=== PATIENT | female | born 1980 | race Caucasian/White ===

== ENCOUNTER 2018-03-29 04:37 | Emergency (ER) | payer BC ==
[2018-03-29] MEDS ORDERED: MORPHINE SULFATE 10 MG/ML INJ IV ONE (04:56)
[2018-03-29 05:09] LABS: ABSOLUTE LYMPHOCYTES (AUTO) 0.9 10^3/uL (0.5-4.7); ABSOLUTE MONOCYTES (AUTO) 1.3 10^3/uL (0.1-1.4); ABSOLUTE NEUT (AUTO) 11.6 10^3/uL (1.7-8.2); BASOPHILS % (AUTO) 0.3 % (0-2); EOSINOPHILS % (AUTO) 0.1 % (0-6); HEMATOCRIT 39.2 % (36.0-47.0); HEMOGLOBIN 14.1 g/dL (12.0-15.5); LYMPHOCYTES % (AUTO) 6.7 % (13-45); MEAN CORPUSCULAR HEMOGLOBIN 33.2 pg (27.0-33.4); MEAN CORPUSCULAR HGB CONC 35.9 g/dL (32.0-36.0); MEAN CORPUSCULAR VOLUME 93 fl (80-97); MONOCYTES % (AUTO) 9.2 % (3-13); PLATELET COUNT 252 10^3/uL (150-450); RED BLOOD COUNT 4.24 10^6/uL (3.72-5.28); RED CELL DISTRIBUTION WIDTH 12.1 % (11.5-14.0); SEGMENTED NEUTROPHILS % (AUTO) 83.7 % (42-78); TOTAL CELLS COUNTED % (AUTO) 100 %; WHITE BLOOD COUNT 13.8 10^3/uL (4.0-10.5)
--- NOTE | 2018-03-29 05:13 | ER Document Report ---
ED Medical Screen (RME) - General Chief Complaint: Post Surgical Pain Stated Complaint: BACK PAIN TRAVEL OUTSIDE OF THE [place] IN LAST 30 DAYS: No - HPI Patient complains to provider of: back pain Onset: Other - 37-year-old 6 days status post spinal stimulator implantation presents with some fevers and chills and excruciating back pain in the thoracic spine which woke her from sleep. - Related Data Allergies/Adverse Reactions: No Known Allergies Allergy (Verified 03/29/18 04:48) Past Medical History Renal/ Medical History: Denies: Hx Peritoneal Dialysis Past Surgical History: Reports: Hx Section - x3, Hx Cholecystectomy, Hx Tonsillectomy, Hx Tubal Ligation - Immunizations Immunizations up to date: Yes Hx Diphtheria, Pertussis, Tetanus Vaccination: No Physical Exam - Vital signs Vitals: Temp 98.5 F 03/29/18 04:40 Course - Re-evaluation Re-evalutation: 03/29/18 05:12 I performed a rapid medical screening examination on this patient. She is postoperative course day 6 with some fevers and chills after a spinal stimulator implantation. Has some concern for possible infection, will obtain labs as well as imaging. This patient will require further investigation and evaluation by secondary provider, will defer disposition determination to that provider. - Vital Signs Vital signs: Temp Pulse Resp BP Pulse Ox 98.5 F 12 130/64 H 100 03/29/18 04:40 03/29/18 04:43 03/29/18 04:43 03/29/18 04:43 - Laboratory Result Diagrams: 03/29/18 04:48 03/29/18 04:48 Doctor's Discharge - Discharge Referrals: JACK CERON FNP [Primary Care Provider] - Follow up as needed
[2018-03-29 05:18] LABS: ALANINE AMINOTRANSFERASE 86 U/L (9-52); ALBUMIN 4.3 g/dL (3.5-5.0); ALKALINE PHOSPHATASE 68 U/L (38-126); ANION GAP 12 (5-19); ASPARTATE AMINO TRANSFERASE 68 U/L (14-36); BILIRUBIN,DIRECT 0.2 mg/dL (0.0-0.4); BILIRUBIN,TOTAL 0.8 mg/dL (0.2-1.3); BLOOD UREA NITROGEN 10 mg/dL (7-20); C-REACTIVE PROTEIN 79.7 mg/L (<10.0); CALCIUM 9.7 mg/dL (8.4-10.2); CARBON DIOXIDE 25 mmol/L (22-30); CHLORIDE 100 mmol/L (98-107); GLUCOSE 133 mg/dL (75-110); POTASSIUM 3.9 mmol/L (3.6-5.0); SODIUM 137.3 mmol/L (137-145); TOTAL PROTEIN 7.4 g/dL (6.3-8.2)
--- NOTE | 2018-03-29 05:56 | RADIOLOGY REPORT (SQ) ---
EXAM DESCRIPTION: CT THORACIC SPINE WITHOUT THEN WITH IV CONTRAST COMPLETED DATE/TME: 03/29/2018 04:55 CLINICAL HISTORY: abscess post spinal stimulator implant COMPARISON: None available TECHNIQUE: Axial CT of the thoracic spine obtained without and with contrast. 80 mL Omnipaque 350 administered intravenously without complication. FINDINGS: Alignment of the thoracic spine is maintained without evidence of subluxation. Dorsal generator leads identified. The generator pack itself is not identified on this study. No well-circumscribed fluid collections definitely identified on the generator leads. Small foci of epidural and subcutaneous air may be due to recent placement. No fracture identified. Vertebral body height preserved. Prevertebral soft tissues are unremarkable. Intervertebral disc height preserved. Visualized mediastinum is unremarkable. No abnormality in the visualized lungs. No abnormalities of visualized ribs. No abnormalities of visualized upper abdominal soft tissues. DLP: 5881.16 mGy-cm IMPRESSION: 1. No acute fracture or subluxation of the thoracic spine. 2. Scattered foci of air in the epidural space and the subcutaneous soft tissues along the generator leads is likely postoperative. No well-circumscribed fluid collection along the visualized course of the generator leads to suggest abscess formation. The generator pack itself is not visualized on this study. This exam was performed according to our departmental dose-optimization program, which includes automated exposure control, adjustment of the mA and/or kV according to patient size and/or use of iterative reconstruction technique.
[2018-03-29 06:41] LABS: ERYTHROCYTE SEDIMENTATION RATE 40 mm/hr (0-20)
[2018-03-29] MEDS ORDERED: NORMAL SALINE 1000 ML 1,000 ML IV ONE (06:44)
[2018-03-29] MEDS ORDERED: HYDROMORPHONE HCL INJ/PF 2 MG/ML AMPULE IV ONE (06:45)
[2018-03-29] MEDS ORDERED: ONDANSETRON HCL INJ/PF 4 MG/2 ML SDV IV ONE (06:56)
--- NOTE | 2018-03-29 06:57 | ER Document Report ---
ED General - General Chief Complaint: Post Surgical Pain Stated Complaint: BACK PAIN Time Seen by Provider: 03/29/18 06:29 Mode of Arrival: Ambulatory Information source: Patient Notes: Patient complained of upper back pain on the site of her recent back surgery which started last night. Patient had a stimulator placed in her upper back for back pain. This procedure was done by Dr. Trimble at [facility] in [place]. Patient denies any fall or injury to the back. She says she has been taking Percocets at home without any relief of her pain. Patient denies fever/chills, chest pain, shortness of breath, abdominal pain, nausea or vomiting. TRAVEL OUTSIDE OF THE [place] IN LAST 30 DAYS: No - HPI Onset: This morning Onset/Duration: Sudden Quality of pain: Sharp Severity: Severe Pain Level: 5 Associated symptoms: None Exacerbated by: Denies Relieved by: Denies Similar symptoms previously: No Recently seen / treated by doctor: Yes - Dr Jatinder Trimble at [facility].03/26/2018 - Related Data Allergies/Adverse Reactions: No Known Allergies Allergy (Verified 03/29/18 04:48) Past Medical History - Social History Smoking Status: Unknown if Ever Smoked Family History: Reviewed & Not Pertinent Patient has suicidal ideation: No Patient has homicidal ideation: No Renal/ Medical History: Denies: Hx Peritoneal Dialysis Past Surgical History: Reports: Hx Section - x3, Hx Cholecystectomy, Hx Tonsillectomy, Hx Tubal Ligation - Immunizations Immunizations up to date: Yes Hx Diphtheria, Pertussis, Tetanus Vaccination: No Review of Systems - Review of Systems Constitutional: denies: Chills, Fever EENT: denies: Eye pain Cardiovascular: No symptoms reported Respiratory: No symptoms reported Gastrointestinal: No symptoms reported Genitourinary: No symptoms reported Female Genitourinary: No symptoms reported Musculoskeletal: Back pain Skin: No symptoms reported Hematologic/Lymphatic: No symptoms reported Neurological/Psychological: No symptoms reported -: Yes All other systems reviewed and negative Physical Exam - Vital signs Vitals: Temp 98.5 F 03/29/18 04:40 - General General appearance: Appears well, Alert In distress: None - HEENT Head: Normocephalic, Atraumatic Eyes: Normal Pupils: PERRL - Respiratory Respiratory status: No respiratory distress Chest status: Nontender Breath sounds: Normal Chest palpation: Normal - Cardiovascular Rhythm: Regular Heart sounds: Normal auscultation Murmur: No - Abdominal Inspection: Normal Distension: No distension Bowel sounds: Normal Tenderness: Nontender Organomegaly: No organomegaly - Back Back: Other - Thoracic vetebrae surgical wound is well healed. No discharge or signs of infection. Mild tenderness to palpation. - Extremities General upper extremity: Normal inspection, Nontender, Normal color, Normal ROM , Normal temperature General lower extremity: Normal inspection, Nontender, Normal color, Normal ROM , Normal temperature, Normal weight bearing. No: Ciera's sign - Neurological Neuro grossly intact: Yes Cognition: Normal Orientation: AAOx4 Meet Coma Scale Eye Opening: Spontaneous Meet Coma Scale Verbal: Oriented Meet Coma Scale Motor: Obeys Commands Meet Coma Scale Total: 15 Speech: Normal Motor strength normal: LUE, RUE, LLE, RLE Sensory: Normal - Psychological Associated symptoms: Normal affect, Normal mood - Skin Skin Temperature: Warm Skin Moisture: Dry Skin Color: Normal Course - Vital Signs Vital signs: Temp Pulse Resp BP Pulse Ox 97.3 F 67 14 122/66 100 03/29/18 09:07 03/29/18 09:07 03/29/18 09:07 03/29/18 09:07 03/29/18 09:07 - Laboratory Result Diagrams: 03/29/18 04:48 03/29/18 04:48 Laboratory results interpreted by me: 03/29/18 03/29/18 03/29/18 04:48 04:48 08:26 WBC 13.8 H Seg Neutrophils % 83.7 H Lymphocytes % 6.7 L Absolute Neutrophils 11.6 H ESR 40 H Creatinine 0.46 L Glucose 133 H AST 68 H ALT 86 H C-Reactive Protein 79.7 H Urine Protein 30 H Urine Ketones TRACE H Urine Blood SMALL H - Diagnostic Test Radiology reviewed: Image reviewed, Reports reviewed - Transfer of Care Notes: 03/29/18 07:36 I called [facility] and spoke with Dr. Jatinder Trimble the Surgeon who operated on the patient last week. I discussed in details the patients medical history, lab results and CT scan findings. He wants patient to be discharged home to follow-up in his outpatient clinic tomorrow morning. I will discharge patient home as recommended by Dr. Jatinder Trimble who performed surgery on the patient. Discharge - Discharge Clinical Impression: Back pain Qualifiers: Back pain location: thoracic back pain Chronicity: acute Back pain laterality: midline Qualified Code(s): M54.6 - Pain in thoracic spine Condition: Stable Disposition: HOME, SELF-CARE Instructions: Chronic Back Pain ([facility]) Additional Instructions: Please call Dr. Brizuela's office tomorrow morning to make appointment to see him immediately. Return to the emergency room if your condition worsens. Referrals: JACK CERON FNP [Primary Care Provider] - Follow up as needed
[2018-03-29] MEDS ORDERED: ONDANSETRON HCL INJ/PF 4 MG/2 ML SDV ONE (06:58)
[2018-03-29] MEDS ORDERED: METOCLOPRAMIDE HCL INJ/PF 10 MG/2 ML SDV IV ONE (08:03)
--- NOTE | 2018-03-29 08:54 | RADIOLOGY REPORT (SQ) ---
EXAM DESCRIPTION: CHEST 2 VIEWS COMPLETED DATE/TIME: 03/29/2018 7:57 am REASON FOR STUDY: Leukocytosis COMPARISON: None. EXAM PARAMETERS: NUMBER OF VIEWS: two views TECHNIQUE: Digital Frontal and Lateral radiographic views of the chest acquired. RADIATION DOSE: NA LIMITATIONS: none FINDINGS: LUNGS AND PLEURA: No opacities, masses or pneumothorax. No pleural effusion. MEDIASTINUM AND HILAR STRUCTURES: No masses or contour abnormalities. HEART AND VASCULAR STRUCTURES: Heart normal size. No evidence for failure. BONES: No acute findings. HARDWARE: Thoracic neurostimulator. OTHER: No other significant finding. IMPRESSION: NO ACUTE RADIOGRAPHIC FINDING IN THE CHEST. TECHNICAL DOCUMENTATION: JOB ID: [id number] [employer]- All Rights Reserved Reading location - IP/workstation name: [email or web address]
[2018-03-29 08:59] LABS: APPEARANCE,URINE SLIGHTLY-CLOUDY; BILIRUBIN,URINE NEGATIVE (NEGATIVE); COLOR,URINE YELLOW; GLUCOSE, URINE NEGATIVE (NEGATIVE); KETONES,URINE TRACE mg/dL (NEGATIVE); LEUKOCYTE ESTERASE,URINE NEGATIVE (NEGATIVE); NITRITE,URINE NEGATIVE (NEGATIVE); PROTEIN,URINE 30 mg/dL (NEGATIVE); UROBILINOGEN,URINE NEGATIVE mg/dL (<2.0)
[2018-03-29 09:00] LABS: URINE SPECIFIC GRAVITY > 1.060
[2018-03-29 09:08] VITALS: BP 122/66
== END 2018-03-29 10:45 | disposition home or self-care (01) ==
LOC: ER 04:37
DX: M54.6 Pain in thoracic spine (principal); G89.18 Other acute postprocedural pain; M54.9 Dorsalgia, unspecified; R50.9 Fever, unspecified; Z79.899 Other long term (current) drug therapy
CPT/HCPCS: 99284; 96361; 96374; 96375; 36415; 85025; 85652; 86140; 80053; 81001; 71046; 72130; J2765; J2270; J1170; J2405; J7030

== ENCOUNTER 2019-10-24 23:40 | Emergency (ER) | payer BC, OTHER ==
[2019-10-24] MEDS ORDERED: ONDANSETRON HCL INJ/PF 4 MG/2 ML SDV IV ONE (23:56)
[2019-10-24] MEDS ORDERED: KETOROLAC TROMETHAMINE INJ/PF 30 MG/1 ML SDV IV ONE (23:57)
--- NOTE | 2019-10-25 00:15 | ER Document Report ---
ED GI/ - General Chief Complaint: Flank Pain Stated Complaint: ABDOMINAL PAIN Time Seen by Provider: 10/24/19 23:51 Primary Care Provider: KELSEY ZACARIAS MD [ACTIVE STAFF] - Follow up in 3-5 days JACK CERON FNP [Primary Care Provider] - Follow up as needed Notes: Patient is a 39-year-old female who presents the emergency department with a chief complaint of left lower quadrant/flank pain. Patient states that her symptoms started 2 to 3 days ago. She has history of cervical cancer and ended up having a hysterectomy 4 years ago. Patient has history of cholecystectomy. Patient also had a nerve stimulator placed 2 years ago. She does not take any medications on a regular basis. TRAVEL OUTSIDE OF THE [place] IN LAST 30 DAYS: No - Related Data Allergies/Adverse Reactions: No Known Allergies Allergy (Verified 03/29/18 04:48) Past Medical History - Social History Smoking Status: Never Smoker Chew tobacco use (# tins/day): No Frequency of alcohol use: None Drug Abuse: None Family History: Reviewed & Not Pertinent Patient has homicidal ideation: No Renal/ Medical History: Denies: Hx Peritoneal Dialysis Past Surgical History: Reports: Hx Section - x3, Hx Cholecystectomy, Hx Tonsillectomy, Hx Tubal Ligation - Immunizations Immunizations up to date: Yes Hx Diphtheria, Pertussis, Tetanus Vaccination: No Review of Systems - Review of Systems Notes: REVIEW OF SYSTEMS: CONSTITUTIONAL : Denies recent illness. Denies recent unintentional weight loss. Denies fever, chills, or sweats. EENT: Denies eye, ear, throat, or mouth pain, discharge, or symptoms. Denies nasal or sinus congestion. CARDIOVASCULAR: Denies chest pain. RESPIRATORY: Denies shortness of breath, cough, congestion, difficulty breathing, or wheezing. GASTROINTESTINAL: See HPI. GENITOURINARY: Denies difficulty urinating, burning, blood in urine, urgency or frequency. MUSCULOSKELETAL: See HPI. Denies joint pain or swelling. SKIN: Denies rash, itchiness, or lesions HEMATOLOGIC : Denies easy bruising or bleeding. LYMPHATIC: Denies swollen, painful, enlarged glands. NEUROLOGICAL: Denies no numbness or tingling denies weakness. Denies headache. Denies altered mental status. Denies alteration in speech. PSYCHIATRIC: Denies stress, anxiety, alteration in sleep patterns, or depression. All other systems reviewed and negative. Physical Exam - Vital signs Vitals: Temp Pulse Resp BP Pulse Ox 98.9 F 92 16 126/75 H 99 10/24/19 23:44 10/24/19 23:44 10/24/19 23:44 10/24/19 23:44 10/24/19 23:44 - Notes Notes: PHYSICAL EXAMINATION: GENERAL: Appears well, healthy, well-nourished, no acute distress. HEAD: Normocephalic, atraumatic. EYES: PERRL, conjunctiva normal, all extraocular movements intact, sclera nonicteric ENT: Moist mucous membranes. NECK: Supple, no noticeable swelling, redness, rash. Normal range of motion. LUNGS: Equal breath sounds bilaterally and clear to auscultation. No wheezes rales or rhonchi. CARDIOVASCULAR: S1-S2, regular rate, regular rhythm. Radial pulses 2+, normal. ABDOMEN: Normoactive bowel sounds. Soft, moderately tender generalized abdomen, no rebound tenderness, and no masses palpated. EXTREMITIES: Normal strength and range of motion, no pitting or edema. No cyano sis. NEUROLOGICAL: Moves all extremities upon command. Strength 5/5 in all extremities. PSYCH: Normal mood, normal affect. SKIN: Warm, dry. No rash, lesions, ulcerations noted. Normal skin turgor. Course - Re-evaluation Re-evalutation: 10/25/19 00:30 Hematology shows a mild leukocytosis of 11,200. Chemistries are unremarkable. Urinalysis shows a moderate amount of blood. Patient will be sent for a CT of the abdomen pelvis rule out kidney stone. 10/25/19 01:46 CT of the abdomen pelvis shows a cystic-appearing structure in the right abdomen. It measures 9.9 x 13.1 x 11.1. Discussed these findings with my attending, Dr. Soni. She will assess the patient. Dr. Soni is recommending a pelvic exam and to speak with Dr. Alarcon, the radiologist for further clarification the the cyst seen on CT. 10/25/19 02:[address] Alarcon, the radiologist to get more input on the cystic- appearing structure. He states that it does not look like an abscess. He is recommending oncology be on board and the patient have the area biopsied and possibly a drain placed by radiology. 10/25/19 02:40 Pelvic exam done with MAGGI Ledbetter at bedside. Patient had a small amount of white discharge noted. No cervical motion tenderness noted. 10/25/19 02:[address] Salazar, the oncologist installation service representative. She will follow the patient. She is requesting a consult on the patient. 10/25/19 03:38 I attempted to call Dr. Zacarias, the surgical on-call. Will await callback. Patient has 4+ bacteria and 4+ epithelial cells noted on her wet mount. We will start her on Flagyl. 10/25/19 05:[address] Zacarias. Patient will be evaluated by him. 10/25/19 05:38 Dr. Zacarias at bedside to evaluate patient. 10/25/19 06:08 Dr. Zacarias spoke with the patient and they discussed the plan of care. The plan is to have the patient continue discussing care with him on an outpatient basis. Dr. Zacarias wants the patient to have an outpatient MRI with IV contrast. Patient will also be sent home on pain medication. I will start her on Flagyl to treat bacterial vaginosis. Patient is in understanding of these instructions. According to Dr. Zacarias, his office will give the patient a call for follow up in the clinic within the next few days. Follow-up precautions were given. Verbal discharge instructions were given to the patient. They verbalized understanding. They are stable for discharge. - Vital Signs Vital signs: Temp Pulse Resp BP Pulse Ox 97.9 F 100 18 104/62 99 10/25/19 06:30 10/25/19 06:30 10/25/19 06:30 10/25/19 06:30 10/25/19 06:30 - Laboratory Result Diagrams: 10/25/19 00:05 10/25/19 00:05 Laboratory results interpreted by me: 10/25/19 10/25/19 00:05 00:05 WBC 11.2 H MCH 34.1 H MCHC 36.4 H Urine Blood MODERATE H Discharge - Discharge Clinical Impression: Abdominal pain Qualifiers: Abdominal location: unspecified location Qualified Code(s): R10.9 - Unspecified abdominal pain Condition: Stable Disposition: HOME, SELF-CARE Additional Instructions: You are seen today in the emergency department for abdominal pain. Your evaluated here in the emergency department and were also evaluated by Dr. Zacarias. Please have the MRI done as soon as possible. The plan is to have you evaluated on an outpatient basis, as you discussed with Dr. Zacarias. His office will call you. Take pain medication as directed. You can also take your nausea medication as directed. Prescriptions: Metronidazole [Flagyl 500 mg Tablet] 500 mg PO Q6H #28 tablet Oxycodone HCl/Acetaminophen [Percocet 5-325 mg Tablet] 1 - 2 tab PO Q4H PRN #25 tablet PRN Reason: Ondansetron [Zofran Odt 4 mg Tablet] 1 - 2 tab PO Q4H PRN #30 tab.rapdis PRN Reason: For Nausea/Vomiting Forms: Follow-Up Radiology Testing Referrals: JACK CERON FNP [Primary Care Provider] - Follow up as needed KELSEY ZACARIAS MD [ACTIVE STAFF] - Follow up in 3-5 days
[2019-10-25 00:20] LABS: ABSOLUTE BASOPHILS # (AUTO) 0.1 10^3/uL (0.0-0.2); ABSOLUTE EOSINOPHILS # (AUTO) 0.2 10^3/uL (0.0-0.6); ABSOLUTE MONOCYTES (AUTO) 0.9 10^3/uL (0.1-1.4); BASOPHILS % (AUTO) 0.9 % (0-2); EOSINOPHILS % (AUTO) 1.5 % (0-6); HEMATOCRIT 41.5 % (36.0-47.0); HEMOGLOBIN 15.1 g/dL (12.0-15.5); LYMPHOCYTES % (AUTO) 27.2 % (13-45); MEAN CORPUSCULAR HEMOGLOBIN 34.1 pg (27.0-33.4); MEAN CORPUSCULAR HGB CONC 36.4 g/dL (32.0-36.0); MEAN CORPUSCULAR VOLUME 94 fl (80-97); MONOCYTES % (AUTO) 7.8 % (3-13); PLATELET COUNT 269 10^3/uL (150-450); RED BLOOD COUNT 4.43 10^6/uL (3.72-5.28); RED CELL DISTRIBUTION WIDTH 12.1 % (11.5-14.0); SEGMENTED NEUTROPHILS % (AUTO) 62.6 % (42-78); TOTAL CELLS COUNTED % (AUTO) 100 %; WHITE BLOOD COUNT 11.2 10^3/uL (4.0-10.5)
[2019-10-25 00:21] LABS: APPEARANCE,URINE SLIGHTLY-CLOUDY; BILIRUBIN,URINE NEGATIVE (NEGATIVE); COLOR,URINE YELLOW; GLUCOSE, URINE NEGATIVE (NEGATIVE); KETONES,URINE NEGATIVE (NEGATIVE); LEUKOCYTE ESTERASE,URINE NEGATIVE (NEGATIVE); NITRITE,URINE NEGATIVE (NEGATIVE); PROTEIN,URINE NEGATIVE (NEGATIVE); URINE SPECIFIC GRAVITY 1.024; UROBILINOGEN,URINE NEGATIVE mg/dL (<2.0)
[2019-10-25] MEDS ORDERED: NORMAL SALINE 1000 ML 1,000 ML IV ONE (00:27)
[2019-10-25 00:49] LABS: ALBUMIN 4.7 g/dL (3.5-5.0); ALKALINE PHOSPHATASE 68 U/L (38-126); ANION GAP 8 (5-19); ASPARTATE AMINO TRANSFERASE 28 U/L (14-36); BILIRUBIN,TOTAL 0.5 mg/dL (0.2-1.3); BLOOD UREA NITROGEN 15 mg/dL (7-20); CARBON DIOXIDE 27 mmol/L (22-30); CHLORIDE 104 mmol/L (98-107); GLUCOSE 104 mg/dL (75-110); POTASSIUM 4.3 mmol/L (3.6-5.0); TOTAL PROTEIN 7.8 g/dL (6.3-8.2)
[2019-10-25] MEDS ORDERED: MORPHINE SULFATE 10 MG/ML INJ IV ONE ×3 (01:16→05:23)
--- NOTE | 2019-10-25 01:31 | RADIOLOGY REPORT (SQ) ---
CLINICAL INDICATION: left flank pain; stone?. . TECHNIQUE: Noncontrast spiral axial CT imaging was obtained of the abdomen and pelvis with multiplanar reconstructions. This exam was performed according to our departmental dose-optimization program, which includes automated exposure control, adjustment of the mA and/or kV according to patient size and/or use of iterative reconstruction techniques. COMPARISON: May 05, 2013. CORRELATION: None. FINDINGS: Abdomen: The lung bases are grossly clear. The heart is of normal size. No evidence of pleural or pericardial fluid. The liver is of normal size contour and attenuation. The gallbladder is surgically absent. The pancreas is of grossly normal contour on this noncontrast examination. The spleen is unremarkable. The adrenals are unremarkable. The kidneys appear grossly normal without evidence of urolithiasis or hydronephrosis. There is no evidence of free air. No free fluid. No bulky adenopathy. Abdominal aorta is nonaneurysmal. A large cystic appearing structure is identified right side of the abdomen, not present previously. This measures 9.9 x 13.1 x 11.1 cm, series 3 image 49 and series 601 image 27. This is adverse change from prior. This abnormality is caudad to the right kidney. Although displaces surrounding solid organs and bowel, it is not appear to be of solid organ origin. It may be arising from the right psoas as there is loss of the tissue plane with this structure. Etiology is unclear. Pelvis: The bowel is nonobstructed. The bowel is unopacified with oral contrast. Pelvic contents are unremarkable. The appendix is normal. Visualized bones demonstrate chronic bilateral pars interarticularis defects at L5. No alignment abnormality. Thoracic neurostimulator is noted IMPRESSION: Interval development of a large cystic appearing structure right side the abdomen unknown etiology. This may be arising from the right psoas.. Tissue diagnosis may be appropriate.
[2019-10-25] MEDS ORDERED: ONDANSETRON HCL INJ/PF 4 MG/2 ML SDV IV ONE (02:19)
[2019-10-25 02:49] LABS: BACTERIA (WET MOUNT) 4+ BACTERIA SEEN; EPITHELIALS (WET MOUNT) 4+ EPITHELIALS SEEN; T.VAGINALIS (WET MOUNT) NO TRICHOMONAS SEEN; WBCS (WET MOUNT) 1+ WBCS SEEN; YEAST (WET MOUNT) NO YEAST SEEN
[2019-10-25] MEDS ORDERED: METRONIDAZOLE 500 MG/NS RTU 500 MG/100 ML RTUPB IV ONE (03:20)
[2019-10-25 04:15] LABS: CHLAM PCR NOT DETECTED (NOT DETECT)
[2019-10-25] MEDS ORDERED: HYDROCODONE/ACETAMINOPHEN 5-325 MG (6 TAB/ER DISP) PO PRN (06:22)
[2019-10-25] MEDS ORDERED: ONDANSETRON ODT 4 MG TAB (6 TAB/ER DISP) PO PRN (06:28)
[2019-10-25 06:46] VITALS: BP 104/62
== END 2019-10-25 06:46 | disposition home or self-care (01) ==
LOC: ER 23:40
DX: R10.32 Left lower quadrant pain (principal); Z85.41 Personal history of malignant neoplasm of cervix uteri; Z90.710 Acquired absence of both cervix and uterus; Z90.49 Acquired absence of other specified parts of digestive tract
CPT/HCPCS: 96376; 99284; 96361; 96375; 96365; 36415; 87040; 87210; 83690; 85025; 80053; 81001; 86701; 87491; 87591; 74176; J1885; J3490; J2270; J2405; J7030

== ENCOUNTER 2019-11-04 00:10 | Emergency (ER) | payer OTHER ==
[2019-11-04 00:49] LABS: APPEARANCE,URINE SLIGHTLY-CLOUDY; BILIRUBIN,URINE NEGATIVE (NEGATIVE); COLOR,URINE YELLOW; GLUCOSE, URINE NEGATIVE (NEGATIVE); KETONES,URINE NEGATIVE (NEGATIVE); LEUKOCYTE ESTERASE,URINE NEGATIVE (NEGATIVE); NITRITE,URINE POSITIVE (NEGATIVE); PROTEIN,URINE NEGATIVE (NEGATIVE); URINE SPECIFIC GRAVITY 1.025; UROBILINOGEN,URINE NEGATIVE mg/dL (<2.0)
[2019-11-04 00:55] LABS: ABSOLUTE BASOPHILS # (AUTO) 0.1 10^3/uL (0.0-0.2); ABSOLUTE EOSINOPHILS # (AUTO) 0.1 10^3/uL (0.0-0.6); ABSOLUTE LYMPHOCYTES (AUTO) 2.5 10^3/uL (0.5-4.7); ABSOLUTE MONOCYTES (AUTO) 0.8 10^3/uL (0.1-1.4); ABSOLUTE NEUT (AUTO) 5.7 10^3/uL (1.7-8.2); BASOPHILS % (AUTO) 0.8 % (0-2); EOSINOPHILS % (AUTO) 1.2 % (0-6); HEMATOCRIT 40.2 % (36.0-47.0); HEMOGLOBIN 14.5 g/dL (12.0-15.5); LYMPHOCYTES % (AUTO) 27.4 % (13-45); MEAN CORPUSCULAR HEMOGLOBIN 33.9 pg (27.0-33.4); MEAN CORPUSCULAR HGB CONC 36.2 g/dL (32.0-36.0); MEAN CORPUSCULAR VOLUME 94 fl (80-97); MONOCYTES % (AUTO) 8.3 % (3-13); PLATELET COUNT 275 10^3/uL (150-450); RED BLOOD COUNT 4.28 10^6/uL (3.72-5.28); RED CELL DISTRIBUTION WIDTH 12.2 % (11.5-14.0); SEGMENTED NEUTROPHILS % (AUTO) 62.3 % (42-78); TOTAL CELLS COUNTED % (AUTO) 100 %; WHITE BLOOD COUNT 9.2 10^3/uL (4.0-10.5)
--- NOTE | 2019-11-04 01:02 | ER Document Report ---
ED General - General Chief Complaint: Abdominal Pain Stated Complaint: STOMACH PAIN Time Seen by Provider: 11/04/19 00:36 Primary Care Provider: JACK CERON FNP [Primary Care Provider] - Follow up as needed Notes: 39-year-old female presents today with continued abdominal pain. Was recently seen in the ER on October 24. On last examination they noted a mass on the right quadrant. The plan was for her to follow-up with Dr. Zamora with a plan for removal of the mass. Does not have an appointment until next week. She has a history of cervical cancer history of cholecystectomy pain is described as diffuse. She reports a decreased appetite no nausea, no vomiting, no diarrhea. States that she took a Percocet and Cymbalta this morning this morning and that did not help alleviate her pain. She was instructed to come back to the ER if her pain became worse. She denies any fevers chills chest pain shortness of breath TRAVEL OUTSIDE OF THE [place] IN LAST 30 DAYS: No - Related Data Allergies/Adverse Reactions: No Known Allergies Allergy (Verified 03/29/18 04:48) Home Medications: cymbalta. percocet Past Medical History - Social History Smoking Status: Former Smoker Family History: Reviewed & Not Pertinent Patient has homicidal ideation: No Renal/ Medical History: Denies: Hx Peritoneal Dialysis Other: back pain Past Surgical History: Reports: Hx Section - x3, Hx Cholecystectomy, Hx Tonsillectomy, Hx Tubal Ligation - Immunizations Immunizations up to date: Yes Hx Diphtheria, Pertussis, Tetanus Vaccination: No Review of Systems - Review of Systems Constitutional: No symptoms reported EENT: No symptoms reported Cardiovascular: No symptoms reported Respiratory: No symptoms reported Gastrointestinal: Abdominal pain Genitourinary: No symptoms reported Female Genitourinary: No symptoms reported Musculoskeletal: Back pain Neurological/Psychological: denies: Numbness, Tingling Physical Exam - Vital signs Vitals: Temp Pulse Resp BP Pulse Ox 99.4 F 138 H 16 140/85 H 99 11/04/19 00:14 11/04/19 00:14 11/04/19 00:14 11/04/19 00:14 11/04/19 00:14 - Notes Notes: Adult General: GENERAL: Alert, interacts well. No acute distress NECK: Full range of motion. Supple. Trachea midline. No lymphadenopathy. ABDOMEN: Soft, tender in all 4 quadrants. Nondistended. Bowel sounds present in all 4 quadrants. GENITOURINARY: Deferred EXTREMITIES: Moves all 4 extremities spontaneously. NEUROLOGICAL: Alert and oriented x3. Normal speech. PSYCH: Normal affect, normal mood. SKIN: Warm, dry, normal turgor. No rashes or lesions noted. Course - Re-evaluation Re-evalutation: 11/04/19 01:46 Patient reports an improvement in her pain level. Urinalysis shows moderate blo od and nitrates but patient reports no suprapubic pain or dysuria. There is normal white count and her hemoglobin is normal. Will repeat dosing of pain medication and vitals and reassess. Discussed case with Dr. Smallwood. Believes that abnormal urine is due to compression of mass onto the kidney. 11/04/19 01:49 11/04/19 05:[address] Cohen to discuss case. Patient's repeat vital signs are now normal. But she continues to be in diffuse abdominal pain. Her abdominal exam is still not impressive. Recommends repeat CT scan. If no interval changes to treat her pain and send her home. Patient states that she has her next appointment next with him to schedule surgery. 11/04/19 06:57 CT scan shows no interval changes to her abdominal mass and no additional pertinent findings. Dr. Cohen called as I was reviewing the findings of the CT scan. He recommends starting the patient on Colace and pain control at this time. He says he will come down to examine the patient. 11/04/19 07:[address] Cohen came to evaluate her. And stated that someone from the office will follow up with her today to schedule surgery/an appointment. Patient was previously prescribed Percocet at last ER visit. States it did provide moderate pain relief. I will continue her on Percocet for pain relief as she is out of the pain meds. Will discharge patient with return precautions to include worsening abdominal pain and recommendation to schedule and keep surgical appointment. 11/04/19 07:52 11/04/19 08:00 - Vital Signs Vital signs: Temp Pulse Resp BP Pulse Ox 98.5 F 88 17 118/74 99 11/04/19 04:45 11/04/19 04:45 11/04/19 04:45 11/04/19 04:45 11/04/19 04:45 - Laboratory Result Diagrams: 11/04/19 00:46 11/04/19 00:46 Laboratory results interpreted by me: 11/04/19 11/04/19 11/04/19 00:30 00:46 00:46 MCH 33.9 H MCHC 36.2 H ALT 85 H Urine Blood MODERATE H Urine Nitrite POSITIVE H Discharge - Discharge Clinical Impression: Abdominal mass Qualifiers: Abdominal location: right lower quadrant Qualified Code(s): R19.03 - Right lower quadrant abdominal swelling, mass and lump Condition: Stable Disposition: HOME, SELF-CARE Instructions: Abdominal Pain ([facility]) Additional Instructions: Please call and schedule surgical appointment. Return precautions to the ER include worsening abdominal pain that is not controlled with [id number] pain meds or development of fevers chills dizziness lightheadedness or other symptoms. Prescriptions: Oxycodone HCl/Acetaminophen [Percocet 5-325 mg Tablet] 1 - 2 tab PO TID PRN #15 tablet PRN Reason: Referrals: JACK CERON FNP [Primary Care Provider] - Follow up as needed
[2019-11-04] MEDS ORDERED: MORPHINE SULFATE 10 MG/ML INJ IV ONE ×3 (01:07→02:13)
[2019-11-04] MEDS ORDERED: NORMAL SALINE 1000 ML 1,000 ML IV ONE (01:09)
[2019-11-04 01:17] LABS: ALBUMIN 4.2 g/dL (3.5-5.0); ALKALINE PHOSPHATASE 61 U/L (38-126); ANION GAP 7 (5-19); ASPARTATE AMINO TRANSFERASE 31 U/L (14-36); BILIRUBIN,TOTAL 0.4 mg/dL (0.2-1.3); BLOOD UREA NITROGEN 17 mg/dL (7-20); CALCIUM 9.5 mg/dL (8.4-10.2); CARBON DIOXIDE 26 mmol/L (22-30); CHLORIDE 106 mmol/L (98-107); GLUCOSE 106 mg/dL (75-110); POTASSIUM 3.6 mmol/L (3.6-5.0); TOTAL PROTEIN 7.1 g/dL (6.3-8.2)
--- NOTE | 2019-11-04 06:47 | RADIOLOGY REPORT (SQ) ---
EXAM DESCRIPTION: CT ABDOMEN PELVIS WITH IV CONTRAST COMPLETED DATE/TME: 11/04/2019 04:58 CLINICAL HISTORY: 39 years Female, worsening abdominal pain. HX OF R ABD MASS. HCG NEG Comparison: 10/24/19 Technique: IV contrast. Coronal and sagittal reformat. This exam was performed according to our departmental dose-optimization program, which includes automated exposure control, adjustment of the mA and/or kV according to patient size and/or use of iterative reconstruction technique. [facility]: Dose Right [facility]: CareDose [facility]: Dose Right [facility]: Teradose 4D [facility]: BagThat LIMITATIONS: None Findings: 13.8- cm complex cystic mass of the right paracentral abdomen without significant interval change. New 3.5 cm focal dilation at the proximal second portion of the duodenum, likely transient. Cholecystectomy. Atelectasis/scar. Likely benign renal cyst(s), not definitively characterized. Stimulator device of the subcutaneous right buttock talk with leads to the lower thoracic spine, partially imaged. No ascites.No pneumoperitoneum. No evidence of appendicitis. Likely normal appendix partially discerned. No hydronephrosis or hydroureter. No renal/ureteral stone. No evidence of abdominal aortic aneurysm. Inferior thorax, liver, pancreas, spleen, adrenals, renal system, gastrointestinal tract, pelvic organs, lymphatics, vasculature, and musculoskeleton appear otherwise unremarkable. IMPRESSION: 13.8- cm complex cystic mass of the right paracentral abdomen without suspicious interval change. Differential etiologies include infectious, inflammatory, and neoplastic processes.
[2019-11-04] MEDS ORDERED: DOCUSATE SODIUM 100 MG CAPSULE PO ONE (06:55)
[2019-11-04] MEDS ORDERED: HYDROCODONE/ACETAMINOPHEN 5-325 MG TABLET PO ONE (06:57)
[2019-11-04 08:07] VITALS: BP 115/75
== END 2019-11-04 08:08 | disposition home or self-care (01) ==
LOC: ER 00:10
DX: R19.03 Right lower quadrant abdominal swelling, mass and lump (principal); R10.84 Generalized abdominal pain; R31.9 Hematuria, unspecified; R63.0 Anorexia; M54.9 Dorsalgia, unspecified; R10.811 Right upper quadrant abdominal tenderness; R10.812 Left upper quadrant abdominal tenderness; R10.813 Right lower quadrant abdominal tenderness; R10.814 Left lower quadrant abdominal tenderness; Z85.41 Personal history of malignant neoplasm of cervix uteri; Z90.49 Acquired absence of other specified parts of digestive tract; Z79.899 Other long term (current) drug therapy; Z79.891 Long term (current) use of opiate analgesic
CPT/HCPCS: 96376; 99284; 96361; 96374; 36415; 87086; 83690; 85025; 81025; 87088; 80053; 81001; 87186; 74177; J2270; J7030

== ENCOUNTER 2019-11-15 08:52 | Inpatient (IN) | payer OTHER ==
[~2019-11-15 08:52] MED LIST: CEFAZOLIN SODIUM 2 GM in DEXTROSE 5%-WATER 100 ML IV PRN; LACTATED RINGERS 1000 ML IV PRN; METRONIDAZOLE 500 MG/NS RTU 500 MG/100 ML RTUPB IV ONE; METRONIDAZOLE 500 MG/NS RTU 500 MG/100 ML RTUPB IV PRN
[2019-11-15] MEDS ORDERED: FENTANYL CITRATE INJ/PF 100 MCG/2 ML AMPUL ONE (11:38)
[2019-11-15] MEDS ORDERED: PROPOFOL INJ 200 MG/20 ML VIAL IV ONE (11:38)
[2019-11-15] MEDS ORDERED: MIDAZOLAM 2 MG/2 ML INJ ONE (11:38)
[2019-11-15] MEDS ORDERED: PROMETHAZINE HCL INJ 25 MG/1 ML VIAL ONE (11:38)
[2019-11-15] MEDS ORDERED: HYDROMORPHONE HCL INJ/PF 2 MG/ML AMPULE ONE ×2 (11:38→15:41)
[2019-11-15] MEDS ORDERED: PROMETHAZINE HCL INJ 25 MG/1 ML VIAL IV PRN (11:40)
[2019-11-15] MEDS ORDERED: MORPHINE SULFATE 10 MG/ML INJ IV PRN ×2 (11:40→15:48)
[2019-11-15] MEDS ORDERED: MEPERIDINE HCL/PF INJ 25 MG/1 ML DISP.SYRIN IV PRN (11:40)
[2019-11-15] MEDS ORDERED: ONDANSETRON HCL INJ/PF 4 MG/2 ML SDV IV PRN ×2 (11:40→15:48)
[2019-11-15] MEDS ORDERED: FENTANYL CITRATE INJ/PF 100 MCG/2 ML AMPUL IV PRN ×3 (11:40)
[2019-11-15] MEDS ORDERED: DIPHENHYDRAMINE HCL 50 MG/ML VIAL IV PRN (11:40)
[2019-11-15] MEDS ORDERED: BUPIVACAINE HCL 0.5 % INJ/PF 30 ML SDV ONE (11:47)
[2019-11-15] MEDS ORDERED: BUPIVACAINE HCL 0.25% /EPINEPHRINE INJ/PF 30 ML SDV ONE (11:49)
[2019-11-15] MEDS ORDERED: DEXAMETHASONE SOD PHOSPHATE INJ 4 MG/1 ML VIAL ONE (12:00)
[2019-11-15] MEDS ORDERED: NEOSTIGMINE METHYLSULFATE 10 MG/10 ML VIAL ONE (12:00)
[2019-11-15] MEDS ORDERED: ROCURONIUM BROMIDE INJ 50 MG/5 ML VIAL IV ONE (12:00)
[2019-11-15] MEDS ORDERED: KETOROLAC TROMETHAMINE 60 MG/2 ML SDV ONE (12:00)
[2019-11-15] MEDS ORDERED: GLYCOPYRROLATE 1 MG/5 ML VIAL ONE (12:00)
[2019-11-15] MEDS ORDERED: ONDANSETRON HCL INJ/PF 4 MG/2 ML SDV ONE (12:00)
[2019-11-15] MEDS ORDERED: FENTANYL CITRATE INJ/PF 250 MCG/5 ML AMPULE ONE (14:12)
[2019-11-15] MEDS: FENTANYL CITRATE INJ/PF 100 MCG/2 ML AMPUL ONE ×2 (15:13→15:30)
[2019-11-15] MEDS: HYDROMORPHONE HCL INJ/PF 2 MG/ML AMPULE IV PRN ×2 (15:40→15:50)
[2019-11-15] MEDS ORDERED: POTASSI CL 20 MEQ/D5-1/2NS 1L 1,000 ML IV PRN (15:48)
--- NOTE | 2019-11-15 16:02 | Operative Report ---
Nonrecallable Operative Report DATE OF SURGERY: 11/15/19 PREOPERATIVE DIAGNOSIS: Abdominal mass POSTOPERATIVE DIAGNOSIS: Abdominal mass OPERATION: Exploratory laparotomy with resection of abdominal mass and appendectomy incidental SURGEON: KELSEY ZACARIAS 1ST CLEANING TECHNICIAN: KVNG FRANCO ANESTHESIA: GA TISSUE REMOVED OR ALTERED: Large 15 cm round cystic mass in the left abdominal cavity, appendix COMPLICATIONS: None ESTIMATED BLOOD LOSS: 100 cc INTRAOPERATIVE FINDINGS: See note PROCEDURE: Patient was brought to the operating awake alert stable condition placed in the upper table supine position just under general esthesia intubated. The abdomen was prepped and draped in usual sterile fashion for the procedure. After appropriate timeout site verification the procedure commenced. A midline incision was utilized from just above the umbilicus to just above the pubic symphysis. Dissection was carried down through subcutaneous tissue with Bovie cautery midline fascia was entered with Bovie cautery. We then placed the overlying the psoas muscle on the right with the Omni retractor for visualization. Patient had a large cystic mass in the right abdominal cavity transverse colon draped over it there were loose adhesions around it between the transverse mesocolon and the mass these were taken down with sharp dissection. The mass extended only to the pelvic brim it did not extend into the pelvis nor did extend up to the bell hepatis. It was attached to the peritoneum laterally and the right colonic mesentery Jordan. However the right colonic mesentery easily peeled away from the mass. Once we did that we then lifted the mass laterally and examined the midline of the pelvis and identified very easily and quickly the right ureter which we traced from the pelvic brim to the renal pelvis. We were able to using blunt dissection with a peanut dilator easily dissect the right ureter away from the peritoneum overlying the mass. We did that that we retracted the mass from lateral to medial and incised the peritoneum on the right abdominal wall with Bovie cautery to facilitate mobilization of the mass medially. Once this was accomplished and we were able to peel the mass away from the psoas muscle it was not fixed to it with sharp dissection and using the LigaSure device. Once this was accomplished the mass then easily was removed. The ureter was then reexamined examined and it appeared to be intact without evidence of injury to the colon was also examined and showed no evidence of injury to the mesentery. At this point the appendix looked somewhat elongated and mildly inflamed as it was sitting on top of the mass and therefore I asked removed it placed I took down the mesoappendix with the LigaSure device and came across the base of the appendix with a pursestring suture of 2-0 chromic amputated appendix tied off the stump and inserted the stump into the cecum tied down the pursestring suture. We then copiously irrigated the abdominal cavity suctioned dry hemostasis noted to be intact we then closed the midline fascia with a running double looped 0 PDS suture closed the skin with standard skin clips. Estimated blood loss for the procedure was 100 cc sponge needle counts were correct x2 the patient was awakened in the operating room extubated transferred recovery in stable condition no complications
[2019-11-15] MEDS: KETOROLAC TROMETHAMINE INJ/PF 30 MG/1 ML SDV IV SCH (19:10)
[2019-11-15] MEDS: MORPHINE SULFATE 10 MG/ML INJ IV PRN ×2 (20:23→23:36)
[2019-11-15] MEDS: NORMAL SALINE 1000 ML 1,000 ML IV PRN (21:31)
[2019-11-15] MEDS: FAMOTIDINE INJ/PF 20 MG/2 ML SDV IV SCH (21:31)
[2019-11-16] MEDS: KETOROLAC TROMETHAMINE INJ/PF 30 MG/1 ML SDV IV SCH ×4 (00:45→17:49)
[2019-11-16] MEDS: MORPHINE SULFATE 10 MG/ML INJ IV PRN ×5 (04:03→21:41)
[2019-11-16 07:03] LABS: ABSOLUTE LYMPHOCYTES (AUTO) 1.4 10^3/uL (0.5-4.7); ABSOLUTE MONOCYTES (AUTO) 1.3 10^3/uL (0.1-1.4); ABSOLUTE NEUT (AUTO) 11.6 10^3/uL (1.7-8.2); BASOPHILS % (AUTO) 0.2 % (0-2); EOSINOPHILS % (AUTO) 0.1 % (0-6); HEMOGLOBIN 12.7 g/dL (12.0-15.5); LYMPHOCYTES % (AUTO) 9.5 % (13-45); MEAN CORPUSCULAR HEMOGLOBIN 33.8 pg (27.0-33.4); MEAN CORPUSCULAR HGB CONC 36.4 g/dL (32.0-36.0); MEAN CORPUSCULAR VOLUME 93 fl (80-97); MONOCYTES % (AUTO) 9.1 % (3-13); PLATELET COUNT 250 10^3/uL (150-450); RED BLOOD COUNT 3.77 10^6/uL (3.72-5.28); RED CELL DISTRIBUTION WIDTH 11.8 % (11.5-14.0); SEGMENTED NEUTROPHILS % (AUTO) 81.1 % (42-78); TOTAL CELLS COUNTED % (AUTO) 100 %; WHITE BLOOD COUNT 14.3 10^3/uL (4.0-10.5)
[2019-11-16 07:20] LABS: BLOOD UREA NITROGEN 12 mg/dL (7-20); CALCIUM 8.3 mg/dL (8.4-10.2); GLUCOSE 116 mg/dL (75-110); POTASSIUM 3.8 mmol/L (3.6-5.0)
[2019-11-16 07:25] LABS: CARBON DIOXIDE 24 mmol/L (22-30); CHLORIDE 107 mmol/L (98-107)
[2019-11-16 07:28] LABS: ANION GAP 3 (5-19)
[2019-11-16] MEDS: NORMAL SALINE 1000 ML 1,000 ML IV PRN ×2 (07:56→17:48)
[2019-11-16] MEDS: FAMOTIDINE INJ/PF 20 MG/2 ML SDV IV SCH ×2 (11:06→21:43)
--- NOTE | 2019-11-16 11:54 | PDOC PROGRESS REPORT ---
Subjective Progress Note for:: 11/16/19 Subjective:: feels ok Reason For Visit: ABDOMINAL MASS Physical Exam Vital Signs: Temp Pulse Resp BP Pulse Ox 98.1 F 72 16 114/59 L 100 11/16/19 08:00 11/16/19 08:00 11/16/19 08:00 11/16/19 08:00 11/16/19 08:00 Intake & Output 11/15/19 11/16/19 11/17/19 06:59 06:59 06:59 Intake Total 5070 1000 Output Total 2595 500 Balance 2475 500 Weight 77.56 kg General appearance: PRESENT: no acute distress Head exam: PRESENT: normocephalic Eye exam: PRESENT: EOMI Ear exam: PRESENT: normal external ear exam Mouth exam: PRESENT: moist Neck exam: PRESENT: full ROM Respiratory exam: PRESENT: clear to auscultation daniel Cardiovascular exam: PRESENT: RRR Pulses: PRESENT: normal radial pulses, normal femoral pulses Breast: PRESENT: Normal GI/Abdominal exam: PRESENT: soft Extremities exam: PRESENT: full ROM Musculoskeletal exam: PRESENT: full ROM Neurological exam: PRESENT: alert, awake, oriented to person, oriented to place Psychiatric exam: PRESENT: appropriate affect Skin exam: PRESENT: dry Results Laboratory Results: 11/16/19 06:15 11/16/19 06:15 11/15/19 11/16/19 11/16/19 12:54 06:15 06:15 WBC 14.3 H RBC 3.77 Hgb 12.7 Hct 35.0 L MCV 93 MCH 33.8 H MCHC 36.4 H RDW 11.8 Plt Count 250 Seg Neutrophils % 81.1 H Sodium 134.0 L Potassium 3.8 Chloride 107 Carbon Dioxide 24 Anion Gap 3 L BUN 12 Creatinine 0.52 Est GFR ( Amer) > 60 Glucose 116 H Calcium 8.3 L Blood Type O POSITIVE Antibody Screen NEGATIVE Assessment & Plan - Diagnosis (1) Abdominal mass Qualifiers: Abdominal location: generalized Qualified Code(s): R19.07 - Generalized intra-abdominal and pelvic swelling, mass and lump Is this a current diagnosis for this admission?: Yes - Plan Summary Plan Summary: doing well this am pain under control will advance to full liquids out of bed.
[2019-11-17] MEDS: KETOROLAC TROMETHAMINE INJ/PF 30 MG/1 ML SDV IV SCH ×2 (00:12→05:52)
[2019-11-17] MEDS: MORPHINE SULFATE 10 MG/ML INJ IV PRN ×2 (01:25→08:56)
[2019-11-17] MEDS: NORMAL SALINE 1000 ML 1,000 ML IV PRN (05:57)
--- NOTE | 2019-11-17 08:31 | PDOC DISCHARGE SUMMARY ---
General - Admit/Disc Date/PCP Admission Date/Primary Care Provider: 11/15/19 16:49 BARB MERIDA Discharge Date: 11/17/19 - Discharge Diagnosis Final Diagnosis: abdominal mass - Assessment Summary: 39-year-old female admitted to the hospital for elective exploratory laparotomy and resection of abdominal mass. She underwent the procedure and tolerated well. So far pathology of the abdominal mass is pending but it was completely resected. On postop day 1 she was feeling well she was started on a clear liquid diet which was slowly advanced to full liquid diet by the time of discharge. When seen the patient this morning she requested to be discharged home she is ambulating the Bryan has been removed she is tolerating full liquid diet. She will be discharged home today on p.o. pain medicine with a follow-up with me in 7 to 10 days for staple removal and discussion of the pathology report. - Additional Information Resuscitation Status: Full Code Discharge Diet: As Tolerated Discharge Activity: Activity As Tolerated, No Lifting Over 10 Pounds Referrals: JACK CERON FNP [Primary Care Provider] - Prescriptions: Oxycodone HCl/Acetaminophen [Percocet 10-325 Mg Tablet] 1 each PO Q6HP PRN #20 tablet PRN Reason: Home Medications: Duloxetine HCl [Cymbalta 30 mg Capsule.dr] 30 mg PO DAILY 11/11/19 Oxycodone HCl/Acetaminophen [Percocet 10-325 Mg Tablet] 1 each PO Q6HP PRN #20 tablet 11/17/19 History of Present Illiness History of Present Illness: FLORENTIN DAMON is a 39 year old female Physical Exam Vital Signs: Temp Pulse Resp BP Pulse Ox 98.0 F 72 18 106/57 L 99 11/17/19 07:41 11/17/19 07:41 11/17/19 07:41 11/17/19 07:41 11/17/19 07:41 Intake & Output 11/16/19 11/17/19 11/18/19 06:59 06:59 06:59 Intake Total 5070 3587 Output Total 6495 500 Balance 2475 3087 Weight 77.56 kg 66.6 kg Results Laboratory Results: WBC 14.3 10^3/uL (4.0-10.5) H 11/16/19 06:15 RBC 3.77 10^6/uL (3.72-5.28) 11/16/19 06:15 Hgb 12.7 g/dL (12.0-15.5) 11/16/19 06:15 Hct 35.0 % (36.0-47.0) L 11/16/19 06:15 MCV 93 fl (80-97) 11/16/19 06:15 MCH 33.8 pg (27.0-33.4) H 11/16/19 06:15 MCHC 36.4 g/dL (32.0-36.0) H 11/16/19 06:15 RDW 11.8 % (11.5-14.0) 11/16/19 06:15 Plt Count 250 10^3/uL (150-450) 11/16/19 06:15 Lymph % (Auto) 9.5 % (13-45) L 11/16/19 06:15 [place] % (Auto) 9.1 % (3-13) 11/16/19 06:15 Eos % (Auto) 0.1 % (0-6) 11/16/19 06:15 Baso % (Auto) 0.2 % (0-2) 11/16/19 06:15 Absolute Neuts (auto) 11.6 10^3/uL (1.7-8.2) H 11/16/19 06:15 Absolute Lymphs (auto) 1.4 10^3/uL (0.5-4.7) 11/16/19 06:15 Absolute Monos (auto) 1.3 10^3/uL (0.1-1.4) 11/16/19 06:15 Absolute Eos (auto) 0.0 10^3/uL (0.0-0.6) 11/16/19 06:15 Absolute Basos (auto) 0.0 10^3/uL (0.0-0.2) 11/16/19 06:15 Seg Neutrophils % 81.1 % (42-78) H 11/16/19 06:15 Sodium 134.0 mmol/L (137-145) L 11/16/19 06:15 Potassium 3.8 mmol/L (3.6-5.0) 11/16/19 06:15 Chloride 107 mmol/L (98-107) 11/16/19 06:15 Carbon Dioxide 24 mmol/L (22-30) 11/16/19 06:15 Anion Gap 3 (5-19) L 11/16/19 06:15 BUN 12 mg/dL (7-20) 11/16/19 06:15 Creatinine 0.52 mg/dL (0.52-1.25) 11/16/19 06:15 Est GFR ( Amer) > 60 (>60) 11/16/19 06:15 Est GFR (MDRD) Non-Af > 60 (>60) 11/16/19 06:15 Glucose 116 mg/dL (75-110) H 11/16/19 06:15 Calcium 8.3 mg/dL (8.4-10.2) L 11/16/19 06:15 COVID-19 Source NASOPHARYNGEAL 11/11/19 11:30 COVID-19 (RYAN) NOT DETECTED 11/11/19 11:30 Blood Type O POSITIVE 11/15/19 12:54 Antibody Screen NEGATIVE 11/15/19 12:54
[2019-11-17] MEDS: FAMOTIDINE INJ/PF 20 MG/2 ML SDV IV SCH (09:10)
[2019-11-17 09:28] VITALS: BP 100/49
== END 2019-11-17 10:44 | disposition home or self-care (01) | DRG 343 ==
LOC: OROUT 08:52 → 2N 16:48 → OROUT 16:49
PROVIDERS: ADMIT Surgery; ATTEND Surgery
PROC: 0WBF0ZZ Excision of Abdominal Wall, Open Approach (ICD-10-PCS; 2019-11-15)
PROC: 0DTJ0ZZ Resection of Appendix, Open Approach (ICD-10-PCS; principal; 2019-11-15 11:30)
DX: R19.09 Other intra-abdominal and pelvic swelling, mass and lump (principal); N83.02 Follicular cyst of left ovary; R10.9 Unspecified abdominal pain; F41.9 Anxiety disorder, unspecified; Z85.41 Personal history of malignant neoplasm of cervix uteri
CPT/HCPCS: 36415; 790; 80048; 85025; 86850; 86900; 86901; 87635; 88304; 88305; 88341; 88342; 94799; C9803; J0690; J1100; J1170; J1885; J2250; J2270; J2405; J2550; J2704; J2710; J3010; J3490; J7030; J7060; S0028

== ENCOUNTER 2020-01-11 23:18 | Emergency (ER) | payer OTHER ==
--- NOTE | 2020-01-11 23:52 | ER Document Report ---
ED Medical Screen (RME) - General Chief Complaint: Abdominal Pain Stated Complaint: ABDOMINAL PAIN Time Seen by Provider: 01/11/20 23:45 Primary Care Provider: JACK CERON FNP [Primary Care Provider] - Follow up as needed Mode of Arrival: Ambulatory Information source: Patient Notes: 39-year-old female presented to ED for complaint of tenderness to the top and bottom of her abdominal incision. She states 8 weeks ago she had a mass removed from her abdomen. She had had a hysterectomy and they moved the ovaries and when they did the hysterectomy there was some fibroids 1 broke off and grew according to the patient. This is what they removed 8 weeks ago now she has a tender area that is kind of firm at the top and bottom of the surgical incision. We will get blood and urine and ultrasound in order in triage. I have greeted and performed a rapid initial assessment of this patient. A comprehensive ED assessment and evaluation of the patient, analysis of test results and completion of medical decision making process will be conducted by an additional ED providers. TRAVEL OUTSIDE OF THE [place] IN LAST 30 DAYS: No - Related Data Allergies/Adverse Reactions: No Known Allergies Allergy (Verified 01/11/20 23:45) Past Medical History - Past Medical History Cardiac Medical History: Denies: Hx Coronary Artery Disease, Hx Heart Attack, Hx Hypertension Pulmonary Medical History: Denies: Hx Asthma, Hx Bronchitis, Hx COPD, Hx Pneumonia Neurological Medical History: Denies: Hx Cerebrovascular Accident, Hx Seizures Renal/ Medical History: Denies: Hx Peritoneal Dialysis Musculoskeltal Medical History: Denies Hx Arthritis Past Surgical History: Reports: Hx Section - x3, Hx Cholecystectomy, Hx Tonsillectomy, Hx Tubal Ligation - Immunizations Immunizations up to date: Yes Hx Diphtheria, Pertussis, Tetanus Vaccination: No Physical Exam - Vital signs Vitals: Temp Pulse Resp BP Pulse Ox 98.6 F 85 16 115/66 100 01/11/20 23:26 01/11/20 23:01/11/20 23:01/11/20 23:01/11/20 23:26 Course - Vital Signs Vital signs: Temp Pulse Resp BP Pulse Ox 98.6 F 85 16 115/66 100 01/11/20 23:26 01/11/20 23:26 01/11/20 23:01/11/20 23:20 23:26 Doctor's Discharge - Discharge Referrals: JACK CERON, [employer] [Primary Care Provider] - Follow up as needed
[2020-01-12 00:38] LABS: ABSOLUTE BASOPHILS # (AUTO) 0.1 10^3/uL (0.0-0.2); ABSOLUTE EOSINOPHILS # (AUTO) 0.2 10^3/uL (0.0-0.6); ABSOLUTE LYMPHOCYTES (AUTO) 2.7 10^3/uL (0.5-4.7); ABSOLUTE MONOCYTES (AUTO) 0.7 10^3/uL (0.1-1.4); ABSOLUTE NEUT (AUTO) 6.2 10^3/uL (1.7-8.2); BASOPHILS % (AUTO) 0.5 % (0-2); EOSINOPHILS % (AUTO) 1.6 % (0-6); HEMATOCRIT 40.5 % (36.0-47.0); HEMOGLOBIN 14.5 g/dL (12.0-15.5); LYMPHOCYTES % (AUTO) 28.1 % (13-45); MEAN CORPUSCULAR HEMOGLOBIN 33.7 pg (27.0-33.4); MEAN CORPUSCULAR HGB CONC 35.9 g/dL (32.0-36.0); MEAN CORPUSCULAR VOLUME 94 fl (80-97); MONOCYTES % (AUTO) 6.7 % (3-13); PLATELET COUNT 278 10^3/uL (150-450); RED BLOOD COUNT 4.31 10^6/uL (3.72-5.28); RED CELL DISTRIBUTION WIDTH 12.4 % (11.5-14.0); SEGMENTED NEUTROPHILS % (AUTO) 63.1 % (42-78); TOTAL CELLS COUNTED % (AUTO) 100 %; WHITE BLOOD COUNT 9.8 10^3/uL (4.0-10.5)
[2020-01-12 00:42] LABS: APPEARANCE,URINE SLIGHTLY-CLOUDY; BILIRUBIN,URINE NEGATIVE (NEGATIVE); COLOR,URINE YELLOW; GLUCOSE, URINE NEGATIVE (NEGATIVE); KETONES,URINE NEGATIVE (NEGATIVE); LEUKOCYTE ESTERASE,URINE NEGATIVE (NEGATIVE); NITRITE,URINE POSITIVE (NEGATIVE); PROTEIN,URINE NEGATIVE (NEGATIVE); URINE SPECIFIC GRAVITY 1.021; UROBILINOGEN,URINE NEGATIVE mg/dL (<2.0)
--- NOTE | 2020-01-12 00:53 | RADIOLOGY REPORT (SQ) ---
Ultrasound abdomen limited on 01/12/2020 at 12:25 AM Clinical indications: Tender area at top and bottom of the abdominal incision, too painful lumps near incision site one superior to umbilicus and one inferior to umbilicus COMPARISON: CT from 11/04/2019 FINDINGS: Limited sonographic imaging is performed throughout the anterior abdominal wall soft tissues in the areas of concern both superior and inferior to the umbilicus. There is some likely scar tissue along the patient's incision site. Minimal fluid is noted along the incision site inferior to the umbilicus likely representing small amount of postoperative seroma. No fluid collection to suggest abscess or hematoma is noted. No definite anterior abdominal wall hernia is noted. IMPRESSION: Small amount of subcutaneous fluid along the incision site inferiorly with no worrisome abnormality noted on this exam. If there is high clinical concern consider CT.
[2020-01-12 00:56] LABS: ALBUMIN 4.3 g/dL (3.5-5.0); ALKALINE PHOSPHATASE 72 U/L (38-126); ANION GAP 6 (5-19); ASPARTATE AMINO TRANSFERASE 20 U/L (14-36); BILIRUBIN,TOTAL 0.5 mg/dL (0.2-1.3); BLOOD UREA NITROGEN 11 mg/dL (7-20); CALCIUM 9.6 mg/dL (8.4-10.2); CARBON DIOXIDE 26 mmol/L (22-30); CHLORIDE 105 mmol/L (98-107); GLUCOSE 96 mg/dL (75-110); POTASSIUM 3.8 mmol/L (3.6-5.0); TOTAL PROTEIN 7.2 g/dL (6.3-8.2)
[2020-01-12] MEDS ORDERED: KETOROLAC TROMETHAMINE INJ/PF 30 MG/1 ML SDV IV ONE (07:24)
--- NOTE | 2020-01-12 08:28 | RADIOLOGY REPORT (SQ) ---
EXAM DESCRIPTION: CT ABD/PELVIS WITH IV ONLY IMAGES COMPLETED DATE/TIME: 01/12/2020 8:12 am REASON FOR STUDY: suprapubic pain/fluid on US COMPARISON: 11/04/2019 TECHNIQUE: CT scan of the abdomen and pelvis performed using helical scanning technique with dynamic intravenous contrast injection. No oral contrast. Images reviewed with lung, soft tissue, and bone windows. Reconstructed coronal and sagittal MPR images reviewed. Delayed images for evaluation of the urinary system also acquired. All images stored on PACS. All CT scanners at this facility use dose modulation, iterative reconstruction, and/or weight based d osing when appropriate to reduce radiation dose to as low as reasonably achievable (ALARA). [facility]: Dose Right [facility]: CareDose [facility]: Dose Right [facility]: Teradose 4D [facility]: [employer] CONTRAST TYPE AND DOSE: contrast/concentration: Isovue 350.00 mmol/ml; Total Contrast Delivered: 81. 0 ml; Total Saline Delivered: 68.0 ml RENAL FUNCTION: None required. The patient is less than 50 years old. RADIATION DOSE: CT Rad equipment meets quality standard of care and radiation dose reduction techniq ues were employed. CTDIvol: 5.8 - 8.1 mGy. DLP: 755 mGy-cm.. LIMITATIONS: None. FINDINGS: LOWER CHEST: No significant findings. No nodules or infiltrates. LIVER: Normal size. No masses. No dilated ducts. SPLEEN: Normal size. No focal lesions. PANCREAS: No masses. No significant calcifications. No adjacent inflammation or peripancreatic fluid collections. Pancreatic duct not dilated. GALLBLADDER: Surgically absent. ADRENAL GLANDS: No significant masses or asymmetry. RIGHT KIDNEY AND URETER: No solid masses. No significant calcifications. No hydronephrosis or hyd roureter. LEFT KIDNEY AND URETER: No solid masses. No significant calcifications. No hydronephrosis or hydr oureter. AORTA AND VESSELS: No aneurysm. No dissection. Renal arteries, SMA, celiac without stenosis. RETROPERITONEUM: No retroperitoneal adenopathy, hemorrhage or masses. BOWEL AND PERITONEAL CAVITY: No masses or inflammatory changes. No free fluid or peritoneal masses. Interval removal of previously seen 13 cm complex cystic mass within the right abdomen. APPENDIX: Not visualized. PELVIS: No mass. No free fluid. Normal bladder. ABDOMINAL WALL: No subcutaneous masses. Evidence of prior midline laparotomy. No significant hernia . Spinal stimulator device within the right gluteal soft tissues. BONES: No acute bony abnormality. No suspicious lytic or blastic osseous lesions. OTHER: No other significant finding. IMPRESSION: 1. Evidence of prior midline laparotomy and interval removal of the previously seen 13 cm complex cystic mass. No significant drainable collection. 2. No other evidence of acute intra-abdominal/pelvic process. TECHNICAL DOCUMENTATION: JOB ID: [id number] Quality ID # [id number]: Final reports with documentation of one or more dose reduction techniques (e.g., Au tomated exposure control, adjustment of the mA and/or kV according to patient size, use of iterative reconstruction technique) 2010 [employer]- All Rights Reserved Reading location - IP/workstation name: [email or web address]
--- NOTE | 2020-01-12 11:05 | ER Document Report ---
ED General - General Chief Complaint: Abdominal Pain Stated Complaint: ABDOMINAL PAIN Time Seen by Provider: 01/11/20 23:45 Primary Care Provider: JACK CERON FNP [Primary Care Provider] - Follow up as needed Mode of Arrival: Ambulatory Information source: Patient TRAVEL OUTSIDE OF THE [place] IN LAST 30 DAYS: No - HPI Notes: Patient presents with acute abdominal pain. She states is mainly right upper quadrant as well as suprapubic. States is been there for several weeks but is gotten worse of the last couple of days. She states she does have some pressure when she tries to urinate as well. She states that she has had a hysterectomy. There is been no vaginal bleeding or discharge. She is also had a noncancerous mass removed from her adnexa. She has had no vomiting or diarrhea. The pain has been intermittent. Is been crampy. Nothing makes it better or worse. No known radiation of the pain. - Related Data Allergies/Adverse Reactions: No Known Allergies Allergy (Verified 01/11/20 23:45) Past Medical History - General Information source: Patient - Social History Smoking Status: Never Smoker Frequency of alcohol use: None Drug Abuse: None Family History: Reviewed & Not Pertinent Patient has homicidal ideation: No - Past Medical History Cardiac Medical History: Denies: Hx Coronary Artery Disease, Hx Heart Attack, Hx Hypertension Pulmonary Medical History: Denies: Hx Asthma, Hx Bronchitis, Hx COPD, Hx Pneumonia Neurological Medical History: Denies: Hx Cerebrovascular Accident, Hx Seizures Renal/ Medical History: Denies: Hx Peritoneal Dialysis Musculoskeletal Medical History: Denies Hx Arthritis Past Surgical History: Reports: Hx Section - x3, Hx Cholecystectomy, Hx Tonsillectomy, Hx Tubal Ligation - Immunizations Immunizations up to date: Yes Hx Diphtheria, Pertussis, Tetanus Vaccination: No Review of Systems - Review of Systems Constitutional: denies: Chills, Fever Cardiovascular: denies: Chest pain, Palpitations Respiratory: denies: Cough, Short of breath -: Yes All other systems reviewed and negative Physical Exam - Vital signs Vitals: Temp Pulse Resp BP Pulse Ox 98.6 F 85 16 115/66 100 01/11/20 23:26 01/11/20 23:26 01/11/20 23:26 01/11/20 23:26 01/11/20 23:26 Interpretation: Normal - General General appearance: Appears well, Alert - HEENT Head: Normocephalic, Atraumatic Eyes: Normal Pupils: PERRL - Respiratory Respiratory status: No respiratory distress Chest status: Nontender Breath sounds: Normal Chest palpation: Normal - Cardiovascular Rhythm: Regular Heart sounds: Normal auscultation Murmur: No - Abdominal Inspection: Normal Distension: No distension Bowel sounds: Normal Tenderness: Tender - Suprapubic and right upper quadrant. No rebound or guarding. Organomegaly: No organomegaly - Back Back: Normal, Nontender - Extremities General upper extremity: Normal inspection, Nontender, Normal color, Normal ROM, Normal temperature General lower extremity: Normal inspection, Nontender, Normal color, Normal ROM, Normal temperature, Normal weight bearing. No: Ciera's sign - Neurological Neuro grossly intact: Yes Cognition: Normal Orientation: AAOx4 Meet Coma Scale Eye Opening: Spontaneous Meet Coma Scale Verbal: Oriented Eure Coma Scale Motor: Obeys Commands Meet Coma Scale Total: 15 Speech: Normal Motor strength normal: LUE, RUE, LLE, RLE Sensory: Normal - Psychological Associated symptoms: Normal affect, Normal mood - Skin Skin Temperature: Warm Skin Moisture: Dry Skin Color: Normal Course - Re-evaluation Re-evalutation: 01/12/20 11:01 Patient has a questionable very small fluid collection on my ultrasound. This was verified with a CT scan however, there is no evidence of a drainable fluid collection on the CT scan. Patient does have an equivocal urine for which I will give her antibiotics. I will send her home with antibiotics and pain medicine and have her follow-up with her family physician or [employer] [employer] [facility]. - Vital Signs Vital signs: Temp Pulse Resp BP Pulse Ox 98.0 F 71 16 123/71 100 01/12/20 09:30 01/12/20 06:04 01/12/20 06:04 01/12/20 06:04 01/12/20 06:04 - Laboratory Result Diagrams: 01/12/20 00:15 01/12/20 00:15 Laboratory results interpreted by me: 01/12/20 01/12/20 01/12/20 00:15 00:15 00:15 MCH 33.7 H Sodium 136.5 L Urine Blood SMALL H Urine Nitrite POSITIVE H - Diagnostic Test Radiology reviewed: Image reviewed, Reports reviewed Discharge - Discharge Clinical Impression: Right upper quadrant abdominal pain UTI (urinary tract infection) Qualifiers: Urinary tract infection type: acute cystitis Hematuria presence: with hematuria Qualified Code(s): N30.01 - Acute cystitis with hematuria Condition: Stable Disposition: HOME, SELF-CARE Instructions: Abdominal Pain ([facility]), Urinary Tract Infection ([facility]), Oral Narcotic Medication ([facility]) Additional Instructions: Please call your family physician or [employer] [facility] as soon as possible to arrange follow-up Prescriptions: Nitrofurantoin Monohyd/M-Cryst [Macrobid 100 mg Capsule] 100 mg PO BID 7 Days #14 cap Hydrocodone/Acetaminophen [[place] 5-325 mg Tablet] 1 tab PO Q6 PRN 3 Days #12 tablet PRN Reason: Forms: Return to Work Referrals: JACK CERON FNP [Primary Care Provider] - Follow up in 3-5 days
[2020-01-12 11:41] VITALS: BP 112/53
== END 2020-01-12 11:40 | disposition home or self-care (01) ==
LOC: ER 23:18
DX: N30.01 Acute cystitis with hematuria (principal); R10.11 Right upper quadrant pain; R10.30 Lower abdominal pain, unspecified
CPT/HCPCS: 99284; 96374; 36415; 85025; 80053; 81001; 76705; 74177; J1885